=== PATIENT | female | born 1995 | race Caucasian/White ===

== ENCOUNTER 2017-03-26 01:52 | Emergency (ER) | payer BC ==
[~2017-03-26 01:52] MED LIST: BCPILLS PO; MULT-506 PO
[2017-03-26 02:06] VITALS: TEMP 36.7; Ht 165.1 cm
[2017-03-26] MEDS ORDERED: JNL12021 PO (02:28)
[2017-03-26] MEDS ORDERED: KETOROLAC TROMETHAMINE 60 MG/2 ML VIAL IM STA (02:34)
--- NOTE | 2017-03-26 04:55 | EMERGENCY ROOM VISIT NOTE ---
History First contact with patient: 02:24 Chief Complaint: HIP PAIN Stated Complaint: RIGHT HIP PAIN DOWN TO FOOT History of Present Illness The patient is a 21 year old female who presents to the Emergency Room with complaints of right hip pain that radiates down her knee after twisting in the shower. Patient states she is unable to bear weight. Patient states she heard a pop. Patient had surgery on both hips in the past. Patient states she had an avulsion fracture to the right hip and labrum tears bilaterally. She describes the pain as aching, ranging in severity 7 out of 10. Worse with movement and better with rest. Patient denies back pain, numbness, tingling, thigh pain, mills pain, ankle pain, loss of bowel or bladder control, saddle anesthesia, fever, chills, leg weakness. Patient has an appointment later this month with [place]opedics [place], [place]. Review of Systems An 10 system review of systems was completed with positives and pertinent negatives listed in the HPI. Past Medical/Surgical History Surgical Problems: (1) History of hip surgery Family History No pertinent family history Social History Smoking Status: Never Smoker Alcohol Use: occasionally Drug Use: none Marital Status: single Housing Status: lives with roommate Occupation Status: [employer] student Current/Historical Medications Scheduled Ethinyl Estradiol/Norethindr (03/02), 1 TAB PO DAILY Physical Exam Vital Signs Date Time Temp Pulse Resp B/P (MAP) Pulse Ox O2 Delivery O2 Flow Rate FiO2 03/26/17 03:08 82 20 118/78 98 Room Air 03/26/17 02:06 36.7 102 20 123/97 97 Room Air Physical Exam VITALS: Vitals are noted on the nurse's note and reviewed by myself. Vital signs stable. GENERAL: Pleasant female, in no acute distress, nondiaphoretic, well-developed well-nourished. SKIN: Capillary reflex less than 2 seconds. HEENT: Normocephalic. PERRLA. EOMI. Nares patent. Mucous membranes moist. HEART: Regular rate and rhythm without murmurs gallops or rubs. LUNGS: Clear to auscultation bilaterally without wheezes, rales or rhonchi. No retractions or accessory muscle use. ABDOMEN: Positive bowel sounds x 4. Normal tympanic percussion. Soft, nontender, without masses or organomegaly. Jane sign negative. No guarding or rebound tenderness. MUSCULOSKELETAL: No gross musculoskeletal defects. No pedal edema. No calf tenderness. No thoracic or lumbar tenderness. Pelvis stable. Right hip minimally tender to palpation with increased pain with range of motion. Left hip nontender to palpation with full range of motion. Right knee tender to palpation with increased pain with range of motion. No right thigh, mills, ankle or foot tenderness. Pedal pulses +2 equal and present bilaterally. NEURO: Patient was alert and oriented to person place and time. Normal sensation to light and sharp touch. Deep tendon reflexes 2+ patella bilaterally. No focal neurological deficits. Medical Decision & Procedures Medications Administered Medications (Trade) Dose Ordered Sig/Ean Route Start Time Stop Time Status Last Admin Dose Admin Ketorolac Tromethamine (Toradol Inj) 60 mg NOW STAT IM 03/26/17 02:34 03/26/17 02:36 DC 03/26/17 03:04 60 MG ED Course Prior records/ancillary studies reviewed. Triage Nursing notes reviewed. Additional history obtained from friends. The patient's history was concerning for hip and knee pain. Differential diagnosis: Etiologies such as musculoskeletal, disc herniation, fracture, metastatic disease, cord compression, discitis, infection, renal colic, sciatica, cauda equina, as well as others were entertained. Physical findings: As above. No focal neurologic findings noted. ER treatment provided: Toradol On reassessment the patient felt better. Diagnostics interpreted by me: Imaging studies: Knee x-rays no acute fracture, dislocation or effusion per my interpretation Bilateral hips and pelvis x-ray concerning for probable old avulsion fracture to the femoral head CT RIGHT HIP: There is a 1.3 cm crescentic flake of bone lateral to the anterior inferior iliac spine, suspicious for avulsion fracture related to the direct head of the rectus femoris tendon. Osseous structures are otherwise intact. Remodeling of the iliac crest may represent the sequela of prior avulsive injury. Radiologist: Jd Obregon M.D. This appears to be consistent with right hip and knee injury with possible avulsion fracture to the anterior inferior iliac spine. Patient was neurovascularly and neurologically intact. She is well appearing. No fracture. She is advised to use the crutches as instructed and to follow-up with orthopedics in a few days or here in the ER sooner for severe pain, numbness, tingling, weakness, worsening signs or symptoms or as needed. By the evaluation outlined above emergent etiologies such as metastatic disease , infection, renal colic, cord compression, cauda equina, as well as others were deemed relatively unlikely. The pt informed about the findings as listed above. All questions were answered and pleased with the treatment. Return instructions were outlined and the patient was discharged in stable condition. Outpatient prescription management: Oxy IR 5mg 1-2 po Q4 hrs prn Referral: The patient was to orthopedics for follow-up in 2 to 3 days for a recheck of the current condition. Case reviewed with my attending Medical Decision As above [place] Drug Monitoring Program Search Results: patient reviewed within database, no issues identified Medication Reconcilliation Current Medication List: was personally reviewed by me Blood Pressure Screening Patient's blood pressure: Normal blood pressure Impression Primary Impression: Closed avulsion fracture of anterior inferior iliac spine of pelvis Additional Impression: Right knee injury Departure Information Dispostion Home / Self-Care Condition GOOD Referrals [facility] (PCP) Patient Instructions [facility] Additional Instructions DO NOT drive, drink alcohol, operate machinery, or perform dangerous activities today. You were given medications in the ER that can affect your ability to safely function or operate a vehicle. Oxycodone (OxyIR) 5mg: Take 1-2 pills every four hours for breakthrough pain. Avoid alcohol, operating machinery or dangerous equipment, working on ladders or roofs, DRIVING, or situations where being under the influence may be dangerous. It is recommended to use an [id number] stool softener such as Colace, 100mg twice daily while taking this medication to avoid constipation. Ibuprofen(Motrin, Advil) may be used for fever or pain. Use 600mg every six hours as needed. Take with food. Avoid using more than 2400mg in a 24 hour period. Do not use 2400mg per day for more than three consecutive days without physician direction. Prolonged inappropriate use can lead to stomach upset or ulcers. This medication can be taken if you need to drive, work, or perform activities which may be dangerous when taking narcotic pain medication. (AND/OR) Acetaminophen(Tylenol) may be used for fever or pain. Use 1000mg every six hours as needed. Avoid using more than 3000mg in a 24 hour period. This medication can be taken if you need to drive, work, or perform activities which may be dangerous when taking narcotic pain medication. Ice compresses for 20 minutes at a time four times daily for 2-3 days. Use the crutches as instructed. Rest and elevate your injury. Continue current medications. Return to the ER immediately for any numbness, tingling, severe pain, extreme swelling in the extremity or as needed. Call Orthopedics tomorrow to arrange follow up for your injury. Problem Qualifiers
[2017-03-26] MEDS ORDERED: OXYCODONE IR HOME PACK PO ONE (05:00)
[2017-03-26 05:12] VITALS: BP 112/77; PULSE 85; O2SAT 98
--- NOTE | 2017-03-26 07:11 | DIAGNOSTIC IMAGING REPORT ---
RIGHT HIP CT CT DOSE: 225.25 mGy.cm HISTORY: right hip pain, ? fx TECHNIQUE: Multiaxial CT images of the right hip were performed and reformatted in the sagittal and coronal plane without the use of contrast. A dose lowering technique was utilized adhering to the principles of ALARA. COMPARISON: Pelvis and hips 03/26/2017. Pelvis and right hip 03/17/2015. FINDINGS: No acute fracture or dislocation within the right hip. Deformity within the anterior iliac bone consistent with an old, healed fracture. There is a linear ossific density at the proximal rectus femoris which remains stable compared to the 2015 study. This is likely due to an old avulsion injury. Cartilage spaces are maintained. Soft tissues are otherwise unremarkable. IMPRESSION: 1. No acute fracture or dislocation within the right hip. 2. Old posttraumatic findings as described above. Electronically signed by: James Allen M.D. 03/26/2017 7:10 AM Dictated Date/Time: 03/26/2017 7:06 AM
--- NOTE | 2017-03-26 07:35 | DIAGNOSTIC IMAGING REPORT ---
R KNEE 3 VIEWS CLINICAL HISTORY: Right knee pain following injury. COMPARISON: None FINDINGS: Alignment of the right knee is in anatomic. No fracture or joint effusion is identified. Joint spaces are preserved. IMPRESSION: No fracture or joint effusion of the right knee. Electronically signed by: Chon Johnson M.D. 03/26/2017 7:34 AM Dictated Date/Time: 03/26/2017 7:33 AM
--- NOTE | 2017-03-26 07:41 | DIAGNOSTIC IMAGING REPORT ---
PELVIS/BILATERAL HIP 2 VIEWS CLINICAL HISTORY: Bilateral hip pain following injury. COMPARISON STUDY: Pelvis radiographs March 17, 2015. FINDINGS: Sacroiliac joints and symphysis pubis are intact. No acute fracture is identified within the pelvis or hips. Deformity of the right iliac bone suggests old injury. A 2 cm linear ossific/calcific density along the lateral aspect of the right acetabulum is unchanged. This suggests an old avulsion injury. There is no acute fracture within the pelvis or hips. There is mild joint space narrowing and osteophytosis of both hips. IMPRESSION: 1. No acute fracture within the pelvis or hips. 2. Old posttraumatic findings within the right hemipelvis, as described above. 3. Mild joint space narrowing and osteophytosis of both hips. Electronically signed by: Chon Johnson M.D. 03/26/2017 7:39 AM Dictated Date/Time: 03/26/2017 7:36 AM
== END 2017-03-26 05:19 | disposition home or self-care (01) ==
LOC: C.EDB 01:54
DX: S32.89XA Fracture of other parts of pelvis, initial encounter for closed fracture (principal); S89.91XA Unspecified injury of right lower leg, initial encounter; M25.551 Pain in right hip; M79.604 Pain in right leg; X50.9XXA Other and unspecified overexertion or strenuous movements or postures, initial encounter